=== PATIENT | male | born 1975 | race Two or more races ===

== ENCOUNTER 2019-07-24 18:01 | Emergency (ER) | payer SELFPAY ==
[~2019-07-24] VITALS: Ht 167.6 cm; Wt 72.6 kg
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
--- NOTE | 2019-07-24 18:42 | NUR ---
DR WHALEN AT BEDSIDE
--- NOTE | 2019-07-24 19:03 | NUR ---
[facility] OFFICER Jessica WARREN (#[id number]) AT BEDSIDE.
--- NOTE | 2019-07-24 22:03 | NUR ---
PATIENT APPEARS CALMER AND COOPERATIVE, 4 POINT RESTRAINT REMOVED. CIRCULATION AND RANGE OF MOTION NORMAL.
--- NOTE | 2019-07-24 22:13 | NUR ---
PATIENT ABLE TO AMBULATE WITH STEADY GAIT, MD Ranulfo AWARE. OK TO DISCHARGE
--- NOTE | 2019-07-24 22:40 | NUR ---
Patient discharged to home in stable condition. Written and verbal after care instructions given. Patient verbalizes understanding of instruction.
[2019-07-24 22:45] VITALS: BP 136/79
== END 2019-07-24 22:45 | disposition home or self-care (01) ==
LOC: ER 18:08
DX: F10.129 Alcohol abuse with intoxication, unspecified (principal); Y90.9 Presence of alcohol in blood, level not specified